=== PATIENT | female | born 1970 | race Caucasian/White ===

== ENCOUNTER 2017-06-26 00:10 | Inpatient (IN) | payer MEDICAID ==
[~2017-06-26] VITALS: Ht 162.6 cm; Wt 74.8 kg
[2017-06-26] MEDS ORDERED: BACL10TA PO (00:22)
[2017-06-26] MEDS ORDERED: GABA-531 PO (00:22)
[2017-06-26] MEDS ORDERED: BUSP15 PO (00:22)
[2017-06-26] MEDS ORDERED: PERCT10 PO (00:22)
[2017-06-26] MEDS ORDERED: MORP15TA9 PO (00:22)
[2017-06-26] MEDS ORDERED: BUPR150T3 PO (00:22)
[2017-06-26 00:43] LABS: BASOPHILS % (AUTO) 0.8 % (0.0-2.0); HEMATOCRIT 41.5 % (36-46); HEMOGLOBIN 14.1 g/dL (12.0-16.0); LYMPHOCYTES # (AUTO) 2.3 K/uL (1.0-4.8); LYMPHOCYTES % (AUTO) 42.4 % (22.0-44.0); MEAN CORPUSCULAR HEMOGLOBIN 30.1 pg (26.0-34.0); MEAN CORPUSCULAR HGB CONC 33.9 G/dL (31.0-37.0); MEAN CORPUSCULAR VOLUME 89 fL (80-100); MONOCYTES # (AUTO) 0.4 K/uL (0.1-1.0); MONOCYTES % (AUTO) 6.9 % (2.0-9.0); NEUTROPHILS # (AUTO) 2.5 K/uL (1.8-7.7); NEUTROPHILS % (AUTO) 46.9 % (40.0-70.0); PLATELET COUNT (AUTO) 219 K/uL (150-450); RED BLOOD CELL COUNT(AUTO) 4.68 MIL/uL (4.00-5.20); RED CELL DISTRIBUTION WIDTH 13.1 % (11.5-14.5); WHITE BLOOD COUNT (AUTO) 5.3 K/uL (4.5-11.0)
[2017-06-26 00:54] LABS: ANION GAP 9 mmol/L (8-16); CARBON DIOXIDE 26 mmol/L (22-29); CHLORIDE 104 mmol/L (98-107); CREATININE 0.83 mg/dL (0.60-1.30); GLOMERULAR FILTR. RATE CALC > 60 mL/min (>60); POTASSIUM 3.7 mmol/L (3.5-5.1); SODIUM SERUM 139 mmol/L (136-145); UREA NITROGEN, BLOOD 8 mg/dL (7-18)
[2017-06-26 00:58] LABS: ALANINE AMINOTRANSFERASE 22 U/L (12-78); ALBUMIN 3.6 g/dL (3.4-5.0); ASPARTATE AMINOTRANSFERASE 14 U/L (15-37); BILIRUBIN,TOTAL 0.3 mg/dL (0.1-1.0); TOTAL PROTEIN, SERUM 7.5 g/dL (6.4-8.2)
[2017-06-26] MEDS ORDERED: HALOPERIDOL 5 MG TABLET PO PRN (01:15)
[2017-06-26] MEDS ORDERED: ACETAMINOPHEN 325 MG TABLET PO ONE (01:45)
[2017-06-26] MEDS: ZOLPIDEM TARTRATE 10 MG TABLET PO PRN ×2 (03:50→20:55)
[2017-06-26 10:37] VITALS: BP 96/64
[2017-06-26] MEDS: GABAPENTIN 300 MG CAPSULE PO SCH ×3 (11:42→16:43)
[2017-06-26] MEDS: IBUPROFEN 600 MG TABLET PO PRN ×2 (11:43→20:19)
[2017-06-26] MEDS: BusPIRone HCL 15 MG TABLET PO SCH ×2 (11:43→16:43)
[2017-06-26] MEDS: BuPROPion HCL 150 MG SR TABLET PO SCH (11:43)
[2017-06-26 12:00] VITALS: BP 96/64
[2017-06-26 16:00] VITALS: BP 114/75
[2017-06-26 20:16] VITALS: BP 120/80
[2017-06-27 00:20] VITALS: BP 103/67
[2017-06-27 01:17] VITALS: BP 139/95
[2017-06-27] MEDS: ACETAMINOPHEN 325 MG TABLET PO PRN ×2 (01:20→21:49)
[2017-06-27] MEDS: LORazepam 2 MG TABLET PO PRN ×4 (01:20→21:49)
[2017-06-27 07:34] LABS: CHOL/HDL RATIO 5.2 (3.9-5.7)
[2017-06-27] MEDS: BuPROPion HCL 150 MG SR TABLET PO SCH (09:12)
[2017-06-27] MEDS: BusPIRone HCL 15 MG TABLET PO SCH ×2 (09:12→16:11)
[2017-06-27] MEDS: GABAPENTIN 300 MG CAPSULE PO SCH ×3 (09:13→16:11)
[2017-06-27 11:12] VITALS: BP 130/82
[2017-06-27 12:29] VITALS: BP 133/85
[2017-06-27] MEDS: IBUPROFEN 600 MG TABLET PO PRN ×2 (12:29→21:49)
[2017-06-27 17:09] VITALS: BP 120/74
[2017-06-27] MEDS: ZOLPIDEM TARTRATE 10 MG TABLET PO PRN (21:49)
[2017-06-28 01:55] VITALS: BP 123/63
[2017-06-28 08:13] LABS: THYROID STIMULATING HORMONE 1.91 uIU/mL (0.36-3.74)
[2017-06-28] MEDS: GABAPENTIN 300 MG CAPSULE PO SCH ×2 (09:20→12:22)
[2017-06-28] MEDS: BuPROPion HCL 150 MG SR TABLET PO SCH (09:20)
[2017-06-28] MEDS: BusPIRone HCL 15 MG TABLET PO SCH (09:21)
[2017-06-28 10:10] VITALS: BP 121/67
[2017-06-28 12:22] VITALS: BP 118/78
[2017-06-28] MEDS: IBUPROFEN 600 MG TABLET PO PRN (12:22)
== END 2017-06-28 15:26 | disposition home or self-care (01) | DRG 751 ==
LOC: EMS 00:12 → B2S 01:30
DX: F33.2 Major depressive disorder, recurrent severe without psychotic features (principal); G62.9 Polyneuropathy, unspecified; R45.851 Suicidal ideations; M54.9 Dorsalgia, unspecified; G43.909 Migraine, unspecified, not intractable, without status migrainosus; F41.9 Anxiety disorder, unspecified; G89.29 Other chronic pain; Z79.899 Other long term (current) drug therapy; Z90.710 Acquired absence of both cervix and uterus; Z88.8 Allergy status to other drugs, medicaments and biological substances
CPT/HCPCS: 84436; 84439; 84443; 99285; G0480